=== PATIENT | male | born 1990 | race Caucasian/White ===

== ENCOUNTER 2019-01-21 11:44 | Emergency (ER) | payer OTHER ==
[~2019-01-21] VITALS: Ht 162.6 cm; Wt 61.2 kg
[~2019-01-21 11:44] MED LIST: LEVAQUIN500 MG PO; ULTRACET PO; ZANTAC300 MG PO
[2019-01-21] MEDS ORDERED: PEPCID AC20 MG PO (18:40)
== END 2019-01-21 19:10 | disposition home or self-care (01) ==
LOC: ER 11:44
DX: R10.31 Right lower quadrant pain (principal); K29.70 Gastritis, unspecified, without bleeding